=== PATIENT | female | born 1960 | race African-American/Black ===

== ENCOUNTER 2020-08-09 05:07 | Day surgery (SDC) | payer OTHER ==
[2020-08-08 10:02] VITALS: BMI 41.5
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
[2020-08-09 08:39] VITALS: TEMP 97.3
[2020-08-09 09:07] VITALS: PULSE 56
[2020-08-09 10:08] VITALS: BP 139/56
--- NOTE | 2020-08-13 10:39 | PATH ---
Surgical Pathology Report Patient Name: JENNIFER ODEN [facility]. Rec. #: [id number] /Age/Gender: 1960 (Age: 60) / F Account: [id number] Location: U-ENDOSCOPY Taken: 08/09/2020 Received: 08/09/2020 Reported: 08/13/2020 Physicians: Rom Spencer M.D. Specimen(s) Received A: DUODENUM B: STOMACH C: ESOPHAGUS D: ASCENDING COLON LIPOMA E: ASCENDING COLON POLYP F: SIGMOID POLYPS 2 G: RECTAL POLYP Clinical History GERD, cancer screening. Postoperative diagnosis: Reflux, colon polyp, colon lipoma, hemorrhoids Final Diagnosis A. DUODENUM, BIOPSY: DUODENAL MUCOSA WITH NO SIGNIFICANT PATHOLOGIC CHANGE. NO HISTOLOGIC EVIDENCE OF INTRAEPITHELIAL LYMPHOCYTOSIS. B. STOMACH, BIOPSY: GASTRIC MUCOSA WITH CHRONIC GASTRITIS. IMMUNOSTAIN FOR H. PYLORI IS NEGATIVE. NEGATIVE FOR INTESTINAL METAPLASIA. ONE SEPARATE FRAGMENT OF SMALL INTESTINAL MUCOSA WITH NO SIGNIFICANT PATHOLOGIC CHANGE. C. ESOPHAGUS, BIOPSY: SQUAMOUS MUCOSA WITH MILD REFLUX ESOPHAGITIS. SEPARATE ONE FRAGMENT OF GLANDULAR MUCOSA WITH MILD CHRONIC INFLAMMATION. NEGATIVE FOR INTESTINAL METAPLASIA. D. ASCENDING COLON LIPOMA, BIOPSY: COLONIC MUCOSA WITH MATURE ADIPOSE TISSUE IN THE SUBMUCOSA. Comment: Consistent with clinical impression of a lipoma. E. ASCENDING COLON POLYP, POLYPECTOMY: HYPERPLASTIC POLYP. SEPARATE COLONIC MUCOSA WITH MATURE ADIPOSE TISSUE AND REACTIVE LYMPHOID AGGREGATE IN THE SUBMUCOSA. SUGGEST CLINICAL CORRELATION. F. SIGMOID COLON, POLYPS 2, POLYPECTOMY: TUBULAR ADENOMA. SEPARATE ONE FRAGMENT POLYPOID COLONIC MUCOSA WITH SURFACE HYPERPLASTIC CHANGE. G. RECTUM POLYP, POLYPECTOMY: HYPERPLASTIC POLYP. Electronically Signed Dorie Garcia M.D. Gross Description A. Received in formalin, labeled "duodenum" are 2tan, irregular portions of soft tissue measuring 0.3 cm. in greatest dimension. The specimens are submitted in toto in one cassette. B. Received in formalin, labeled "stomach" are 3 martin, irregular portion of soft tissue measuring 0.3 cm. in greatest dimension. The specimens are submitted in toto in one cassette. C. Received in formalin, labeled "esophagus" are 3 martin, irregular portions of soft tissue measuring 0.3 cm. in greatest dimension. The specimens are submitted in toto in one cassette. D. Received in formalin, labeled "ascending colon lipoma" are 2 martin, irregular portions of soft tissue measuring 0.2 cm. in greatest dimension. The specimens are submitted in toto in one cassette. E. Received in formalin, labeled "polyp ascending" is a martin, irregular portion of soft tissue measuring 0.3 cm. in greatest dimension. The specimens are submitted in toto in one cassette. F. Received in formalin, labeled "polyp, sigmoid 2" are 2 martin, irregular portion of soft tissue measuring 0.3 cm. in greatest dimension. The specimens are submitted in toto in one cassette. G. Received in formalin, labeled "rectal polyp" is a martin, irregular portion of soft tissue measuring 0.3 cm. in greatest dimension. The specimens are submitted in toto in one cassette. PATRICK08/09/2020 marylin08/09/2020
== END 2020-08-09 09:55 | disposition home or self-care (01) ==
LOC: JASU-ENDO 05:07
PROVIDERS: ATTEND Internal Medicine Gastroenterology
PROC: 0DBN8ZX Excision of Sigmoid Colon, Via Natural or Artificial Opening Endoscopic, Diagnostic (ICD-10-PCS; 2020-08-09)
PROC: 0DBP8ZX Excision of Rectum, Via Natural or Artificial Opening Endoscopic, Diagnostic (ICD-10-PCS; 2020-08-09)
PROC: 0DB98ZX Excision of Duodenum, Via Natural or Artificial Opening Endoscopic, Diagnostic (ICD-10-PCS; 2020-08-09)
PROC: 0DB68ZX Excision of Stomach, Via Natural or Artificial Opening Endoscopic, Diagnostic (ICD-10-PCS; 2020-08-09)
PROC: 0DB58ZX Excision of Esophagus, Via Natural or Artificial Opening Endoscopic, Diagnostic (ICD-10-PCS; 2020-08-09)
PROC: 0DBK8ZX Excision of Ascending Colon, Via Natural or Artificial Opening Endoscopic, Diagnostic (ICD-10-PCS; principal; 2020-08-09 08:00)
DX: Z12.11 Encounter for screening for malignant neoplasm of colon (principal); D12.2 Benign neoplasm of ascending colon; D12.5 Benign neoplasm of sigmoid colon; K62.1 Rectal polyp; K21.0 Gastro-esophageal reflux disease with esophagitis; K29.50 Unspecified chronic gastritis without bleeding
CPT/HCPCS: 88305-TC; 88342-TC